=== PATIENT | male | born 1975 | race African-American/Black ===

== ENCOUNTER 2019-12-01 00:23 | Emergency (ER) | payer OTHER ==
[~2019-12-01] VITALS: Ht 190.5 cm; Wt 99.8 kg
[2019-12-01 01:19] LABS: HEMATOCRIT 47.1 % (42.0-52.0); HEMOGLOBIN 15.9 gm/dL (14.0-18.0); MCH 33.8 pg (26.0-34.0); MCHC 33.8 g/dL (28.0-37.0); MCV 100.1 fL (80.0-100.0); PLATELET COUNT 177 thou/uL (150-400); RBC 4.71 mil/uL (4.50-6.00); RDW 12.9 % (10.5-14.5); WBC 5.5 thou/uL (4.0-11.0)
[2019-12-01 01:21] LABS: ANION GAP 11 mmol/L (7-16); BUN 20 mg/dL (7-18); CALCIUM 8.3 mg/dL (8.5-10.1); CHLORIDE 102 mmol/L (98-107); CO2 19 mmol/L (21-32); GLUCOSE 90 mg/dL (74-106); POTASSIUM 3.8 mmol/L (3.5-5.1); SODIUM 132 mmol/L (136-145)
[2019-12-01 01:31] LABS: ALBUMIN 3.4 g/dL (3.4-5.0); SGOT 29 U/L (15-37); SGPT 36 U/L (30-65); TOTAL BILIRUBIN 0.5 mg/dL (0.2-1.0); TROPONIN-I <0.06 ng/mL (<0.06)
[2019-12-01 02:05] LABS: ABSOLUTE NEUTROPHILS 2.4 thou/uL (1.4-8.2); PLATELET ESTIMATE NORMAL
[2019-12-01 02:46] VITALS: BP 117/82
--- NOTE | 2019-12-01 08:58 | EKG ---
[facility] [place] [address] ELECTROCARDIOGRAM REPORT Name: RABIA PEREIRA Room #: DEP [facility]#: [id number] Admission: 12/01/19 Attend Phys: Discharge: 12/01/19 Date of : 73 Report #: [id number] THIS REPORT FOR: cc: NO FAMILY PHYSICIAN or PCP NO FAMILY PHYSICIAN or PCP Porfirio Mary MD [facility] ~ THIS REPORT FOR: //name// [facility] ED Test Date: 2019-12-01 Test Time: 00:40:14 Pat Name: RABIA PEREIRA Department: Room: Gender: Ux Developer: [place] [id number] : 1975 Requested By: Ankur Bahena Order Number: [id number] MD: Porfirio Mary Measurements Intervals [place] Rate: 73 P: -14 [place]: 173 QRS: 56 QRSD: 100 T: 34 QT: 395 QTc: 436 Interpretive Statements Sinus rhythm Normal tracing No previous ECG available for comparison Electronically Signed On 12-01-2019 8:58:02 CDT by Porfirio Mary [email or web address] <ELECTRONICALLY SIGNED> By: Porfirio Mary MD, FAC 12/01/19 0858 0040 Porfirio Mary MD, FACC /EPI
== END 2019-12-01 03:08 | disposition home or self-care (01) ==
LOC: ER 00:23
PROVIDERS: Emergency Medicine
DX: R07.89 Other chest pain (principal); F17.210 Nicotine dependence, cigarettes, uncomplicated